=== PATIENT | female | born 1990 | race African-American/Black ===

== ENCOUNTER 2018-03-06 05:52 | Day surgery (SDC) | payer BC ==
[2018-03-06] VITALS (14 sets, daily range): BP systolic 121–136; BP diastolic 67–78
[~2018-03-06] VITALS: Ht 162.6 cm; Wt 67.6 kg
[~2018-03-06 05:52] MED LIST: TESTOSTERO200 MG/1 M IM
[2018-03-06] MEDS ORDERED: Metoclopramide 10mg/2ml Inj ONE (07:03)
[2018-03-06] MEDS ORDERED: Midazolam 2mg/2ml Inj ONE (07:03)
[2018-03-06] MEDS ORDERED: Lidocaine 1% MPF 10mg/ml 5ml ONE (07:03)
[2018-03-06] MEDS ORDERED: Propofol 200mg/20ml IV ONE (07:03)
[2018-03-06] MEDS ORDERED: fentaNYL 100 mcg/2 mL IV ONE ×2 (07:03→08:05)
--- NOTE | 2018-03-06 07:07 | Pre-Procedure Note/Attestation ---
Pre-Procedure Note/Attestation Complete Prior to Procedure Planned Procedure: bilateral Indications for Procedure Pre-Operative Diagnosis: gender dysphoria Attestation I attest that I discussed the nature of the procedure; its benefits; risks and complications; and alternatives (and the risks and benefits of such alternatives ), prior to the procedure, with the patient (or the patient's legal sales representative printing supplies). I attest that, if there was a reasonable possibility of needing a blood transfusion, the patient (or the patient's legal sales representative printing supplies) was given the [facility] standardized written summary, pursuant to the Edmund Jennings Blood Safety Act ([place] Health and Safety Code # 1645, as amended). I attest that I re-evaluated the patient just prior to the surgery and that there has been no change in the patient's H&P, except as documented below: Bentley Blackburn MD Mar 06, 2018 07:07
[2018-03-06] MEDS ORDERED: Muri-Lube ONE (07:16)
[2018-03-06] MEDS ORDERED: Bacitracin Oint 15gm Tube TOPIC ONE (07:16)
[2018-03-06] MEDS ORDERED: Dyna-Hex 2% Top Sol 2oz TOPIC ONE (07:17)
[2018-03-06] MEDS ORDERED: Lidocaine 1% 10mg/ml/Epi 0.005mg/ml 30ml vial INJ ONE (07:17)
[2018-03-06] MEDS ORDERED: Zemuron 50mg/5ml Inj IV ONE (07:26)
[2018-03-06] MEDS ORDERED: LR 1000ml ONE (07:30)
[2018-03-06] MEDS ORDERED: NS Irrig 1000ml ONE (07:30)
[2018-03-06] MEDS ORDERED: Sterile Water Irrig 1000ml IRRIG ONE (07:30)
[2018-03-06] MEDS ORDERED: Bupivacaine 0.5% Inj 30 ml vial INJ ONE (07:37)
[2018-03-06] MEDS ORDERED: Glycopyrrolate 0.2mg/ml 1ml Vial ONE (08:06)
[2018-03-06] MEDS ORDERED: Neostigmine 1mg/ml 10ml Inj ONE (08:06)
[2018-03-06] MEDS ORDERED: Phenylephrine 10mg/ml Vial ONE (08:06)
[2018-03-06] MEDS ORDERED: Dexamethasone 4mg/ml vial ONE (08:06)
--- NOTE | 2018-03-06 08:54 | Anethesia Preoperative Eval ---
Anesthesia Pre-op PMH/ROS General Date of Evaluation: Mar 06, 2018 Time of Evaluation: 07:20 Anesthesiologist: Gail ASA Score: ASA 1 Mallampati Score Class I : Soft palate, uvula, fauces, pillars visible Class II: Soft palate, uvula, fauces visible Class III: Soft palate, base of uvula visible Class IV: Only hard plate visible Mallampati Classification: Class I Surgeon: Bere Diagnosis: Gender ID disorder Surgical Procedure: bilateral matectomy with nipple reconstruction Anesthesia History: none Family History: no anesthesia problems Allergies: Coded Allergies: No Known Allergies (Unverified , 03/05/18) Medications: see eMAR Patient NPO?: Yes NPO Date: Mar 05, 2018 NPO Time: 19:30 Past Medical History Cardiovascular: Denies: HTN, CAD, GA, valve dz, arrhythmia, other Pulmonary: Denies: asthma, COPD, MANFRED, other Gastrointestinal/Genitourinary: Denies: GERD, CRI, ESRD, other Neurologic/Psychiatric: Denies: dementia, CVA, depression/anxiety, TIA, other Endocrine: Denies: DM, hypothyroidism, steroids, other HEENT: Denies: cataract (L), cataract (R), glaucoma, EYAK (L), EYAK (R), other Hematology/Immune: Denies: anemia, DVT, bleeding disorder, other Musculoskeletal/Integumentary: Reports: other - bilateral knees - meniscu tear repair PSxH Narrative: bilateral knees meniscus tear repair Anesthesia Pre-op Phys. Exam Physician Exam Last Vital Signs Date Time Temp Pulse Resp B/P (MAP) Pulse Ox O2 Delivery O2 Flow Rate FiO2 03/06/18 06:44 Room Air 03/06/18 06:41 98.1 78 20 121/71 100 98.1 Constitutional: NAD Neurologic: CN 2-12 intact Cardiovascular: RRR Respiratory: CTA Gastrointestinal: S/NT/ND Airway Exam Mallampati Score: Class I MO: full Neck: full ROM ROM: full Teeth: intact Anesthesia Pre-op A/P Labs chart reviewed Urine Test Test 03/06/18 06:10 Urine HCG, Qualitative Negative (NEGATIVE) Risk Assessment & Plan Assessment: A&O x 4 Plan: general with ETT Status Change Before Surgery: No Rashmi Reynolds CRNA Mar 06, 2018 08:54
--- NOTE | 2018-03-06 08:56 | Immediate Post-Op Evaluation ---
Immediate Post-Op Evalulation Immediate Post-Op Evalulation Procedure: bilateral mastectomy with nipple reconstruction Date of Evaluation: Mar 06, 2018 Time of Evaluation: 11:30 IV Fluids: LR Blood Products: 0 Estimated Blood Loss: 120 ml Urinary Output: 200 ml Blood Pressure Systolic: 135 Blood Pressure Diastolic: 67 Pulse Rate: 63 Respiratory Rate: 13 O2 Sat by Pulse Oximetry: 100 Temperature (Fahrenheit): 97 Pain Score (1-10): 0 Nausea: No Vomiting: No Patient Status: awake, reacts, patent Hydration Status: adequate Drug: ancef 1 gm iv Given Within 1 Hr of Incision: Yes Time Given: 07:50 Rashmi Reynolds CRNA Mar 06, 2018 08:56
--- NOTE | 2018-03-06 10:58 | Discharge Instructions ---
Discharge Instructions Discharge Instructions Follow up with: Dr Blackburn 03/11/18 Diet: regular Resume Normal Activity?: Yes Activity: ambulate For Surgical Patients Dressing Care: keep dry and clean May shower: No - sponge bathe only For Congestive Heart Failure Reminder Report to your physician any weight gain of 5 pounds or more in one week. Bentley Blackburn MD Mar 06, 2018 10:58
--- NOTE | 2018-03-06 10:58 | Operative Note - PDOC ---
Operative Note Operative Note Date of Operation/Procedure: Mar 06, 2018 Pre-op Diagnosis: gender dysphoria Procedure: bilateral mastectomy with free nipple grafting Post-op Diagnosis: same as pre-op Surgeon: Bere Anesthesia: general Specimen: yes - 1) right breast, 2) left breast Complications: none Condition: stable Estimated Blood Loss: volume - 50 cc Drains: MONIQUE - x2 Implant(s) used?: No Bentley Blackburn MD Mar 06, 2018 10:57
[2018-03-06] MEDS ORDERED: Hydromorphone 0.5mg/0.5ml inj IVP PRN (11:45)
--- NOTE | 2018-03-06 13:37 | 48 Hour Post Anesthesia Eval ---
Post Anesthesia Evaluation Procedure: bilateral mastectomy with nipple reconstruction Date of Evaluation: Mar 06, 2018 Time of Evaluation: 13:34 Blood Pressure Systolic: 131 0: 73 Pulse Rate: 78 Respiratory Rate: 18 Temperature (Fahrenheit): 97.6 O2 Sat by Pulse Oximetry: 98 Airway: patent Nausea: No Vomiting: No Pain Intensity: 0 Hydration Status: adequate Cardiopulmonary Status: WNL Mental Status/LOC: patient returned to baseline Post-Anesthesia Complications: none Follow-up care needed: patient intructions given Rashmi Reynolds CRNA Mar 06, 2018 13:37
[2018-03-06] MEDS ORDERED: HYDROmorphone 1mg/ml Carpuject SUBQ PRN (19:01)
[2018-03-06] MEDS ORDERED: Norco 5mg/325mg tab ORAL PRN (19:01)
[2018-03-06] MEDS ORDERED: D5 1/2NS 1,000 ML IV SCH (19:01)
[2018-03-06] MEDS ORDERED: Tylenol #3 tab (300mg/30mg) ORAL PRN (19:01)
--- NOTE | 2018-03-06 22:45 | Operative Note - Dictated ---
DATE OF OPERATION: 03/06/2018 PREOPERATIVE DIAGNOSIS: Gender dysphoria. POSTOPERATIVE DIAGNOSIS: Gender dysphoria. PROCEDURES: 1. Bilateral mastectomy. 2. Bilateral nipple areola reconstruction utilizing full-thickness nipple areola composite grafts (each graft 2.5 x 2.5 cm). SURGEON: Bentley Blackburn M.D. ANESTHESIA: General. ESTIMATED BLOOD LOSS: 50 mL. SPECIMENS: 1. Right breast. 2. Left breast. DRAINS: A 15-Bermud[place] Mark x2. COMPLICATIONS: None. CONDITION: To recovery room stable. INDICATION FOR PROCEDURE: This is a very pleasant 27-year-old trans-male, who desires top surgery mastectomy as part of his transition. He has the appropriate letter of recommendation from his therapist and meets all WPATH criteria for top surgery. I have discussed the risks, benefits, and alternatives of the procedure with him including, but not limited to, bleeding, infection, scarring, nerve injury, asymmetry, contour deformity, hematoma, seroma, loss of nipple sensation, loss of nipple graft and need for additional surgery including revision. I discussed the orientation of the incisions and the unpredictable nature of scarring. No guarantees were made regarding the outcome. All of his questions have been answered to the best of my ability. He verbalized understanding with everything that we discussed and wishes to proceed. DESCRIPTION OF PROCEDURE: The patient was identified in the preoperative holding area and marked in the standing position. He was then brought to the operating room where he was placed in the supine position on the operating room table with his arms extended on arm boards. All bony prominences were adequately padded. Sequential compression devices were placed and intravenous antibiotics were administered. After induction of anesthesia, the patient's chest was prepped and draped in sterile fashion. Starting on the left breast first, the nipple areola complex was placed on manual stretch and a [place] measuring 2.5 cm in diameter was drawn at centered around the nipple. Next, the subdermal plane within the marking was infiltrated with 2 mL of 1% lidocaine with epinephrine. I then used a 15 blade scalpel to incise the areolar markings and proceeded to harvest a full-thickness nipple areola graft. The graft was subsequently defatted and wrapped in wet gauze and placed on the back table. I then made an inframammary fold incision using a 10 blade scalpel and dissected down to the level of the pectoralis major fascia using electrocautery. After this was done, I then made the superior breast incision using a 10 blade scalpel and dissected down to the level of Michael's fascia. Allis clamps were used to retract the skin and a plane of dissection was created between the subcutaneous tissue and breast parenchyma heading in a superior direction towards the clavicle. After this was done, the breast parenchyma was then elevated off of the pectoralis major fascia proceeding from a medial to a lateral direction. This specimen was then passed off the table. The wound was irrigated with saline and hemostasis was achieved. A 15-Bermudian Mark drain was then placed within the wound and brought out through a separate stab incision and secured using 2-0 silk suture. Skin eleni were then used to temporarily reapproximate the skin. I shifted my attention to the contralateral side where the identical procedure was performed. The patient was then sat up on the operating room table and it appeared that he had very reasonable symmetry between the two sides of the chest. I then used a marking pen to draw out the proposed location of the new nipple areola complex on both sides and these markings were confirmed with direct measurement. He was then placed back in the supine position. On each side of the chest, the skin eleni were removed and the Michael's fascia layer was reapproximated using interrupted 0 Vicryl suture followed by 3-0 PDS sutures for the subdermal layer and a running 3-0 subcuticular Monocryl suture for the skin. After this was done, I then proceeded to incise the circular areola markings on each side of the chest using a 15 blade scalpel and the intervening skin was de-epithelialized. Each of the full-thickness nipple areola grafts were then brought on to the appropriate side of the chest and reconstruction of the nipple areola complex was performed by insetting the graft using a running 5-0 fast absorbing suture. Next, several 2-0 silk suture ties were placed around the periphery of each of the nipple areola grafts. The skin graft bolster was fashioned and secured into place over each graft using the 2-0 silk suture ties. Next, 8 mL of 0.5% plain Marcaine were injected into each incision for a total of 16 mL. Sterile dressings were then applied. The patient tolerated the procedure well and was sent to the recovery room in stable condition. All instrument, sharp, and sponge counts were correct at the conclusion of the case. Bentley Blackburn M.D. DR: MORAIMA JOB#: [id number] CC:
== END 2018-03-06 13:35 | disposition home or self-care (01) ==
LOC: SUR 05:52
DX: F64.9 Gender identity disorder, unspecified (principal)
CPT/HCPCS: 15200; 19303; 81025; J0690; J1100; J1170; J2250; J2370; J2405; J2704; J2710; J2765; J3010; J3490; 94003; 94150